=== PATIENT | female | born 1955 | race Caucasian/White ===

== ENCOUNTER 2019-10-21 09:23 | Emergency (ER) | payer OTHER, MEDICARE ==
[~2019-10-21] VITALS: Ht 165.1 cm; Wt 77.9 kg
[2019-10-21 09:41] VITALS: BP 153/89
--- NOTE | 2019-10-21 10:06 | NUR ---
[employer]: PT TO ROOM FROM LOBBY.
[2019-10-21] MEDS ORDERED: VENL75CA6 PO (10:07)
--- NOTE | 2019-10-21 10:10 | NUR ---
PT C/O COUGH WITH CHILLS FOR A FEW DAYS AFTER TRAVELING TO [place]. PT DENIES FEVERS, CP , SOB, OR ANY GI ISSUES. DR. ADAMS AT BEDSIDE.
== END 2019-10-21 10:42 | disposition home or self-care (01) ==
LOC: ED 10:30
DX: R05 Cough (principal); Z20.828 Contact with and (suspected) exposure to other viral communicable diseases
CPT/HCPCS: 99283; U0001